=== PATIENT | male | born 1980 | race Two or more races ===

== ENCOUNTER 2018-02-08 19:55 | Emergency (ER) | payer OTHER ==
[~2018-02-08] VITALS: Ht 180.3 cm; Wt 97.5 kg
[2018-02-08 20:12] VITALS: Ht 180.3 cm; Wt 97.5 kg
[2018-02-08 20:59] LABS: BASOPHIL % 0.6 % (0-2); PLATELET COUNT 262 x10^3mcL (130-400)
[2018-02-08 21:04] LABS: RED CELL DISTRIBUTION WIDTH 15.7 % (11.5-14.5)
[2018-02-08 21:08] LABS: CARBON DIOXIDE 27.6 mmol/L (21-32); CHLORIDE SERUM 100 mmol/L (98-107); CREATININE SERUM 0.7 mg/dL (0.7-1.3); GFR1 > 60 mL/min; GLUCOSE SERUM 111 mg/dL (74-106); POTASSIUM SERUM 3.5 mmol/L (3.5-5.1); SODIUM SERUM 134 mmol/L (136-145)
[2018-02-08 21:13] LABS: ALBUMIN 3.4 g/dL (3.4-5.0); ALKALINE PHOSPHATASE 91 U/L (46-116); ALT/SGPT 40 U/L (16-63); AST/SGOT 27 U/L (15-37); BILIRUBIN TOTAL 0.4 mg/dL (0.20-1.00); LIPASE 99 IU/L (73-393)
[2018-02-08 21:14] LABS: TOTAL PROTEIN, SERUM 8.4 g/dL (6.4-8.2)
[2018-02-08 22:10] LABS: microscopic required? NO
[2018-02-08 22:25] LABS: UA SPECIFIC GRAVITY >=1.030 (1.005-1.035); urine erythrocyte NEGATIVE (NEGATIVE)
[2018-02-08 22:35] LABS: AMPHETAMINE QUAL UR POSITIVE (See below)
[2018-02-08 22:46] VITALS: BP 117/90
== END 2018-02-08 22:47 | disposition home or self-care (01) ==
LOC: ED 19:55
PROVIDERS: Emergency Medicine
DX: K59.00 Constipation, unspecified (principal); R11.10 Vomiting, unspecified; F15.10 Other stimulant abuse, uncomplicated; F11.10 Opioid abuse, uncomplicated
CPT/HCPCS: J1885; J2405

== ENCOUNTER 2019-04-18 19:52 | Emergency (ER) | payer OTHER ==
[~2019-04-18] VITALS: Ht 182.9 cm; Wt 105.2 kg
[2019-04-18 20:00] VITALS: BP 140/94; Ht 182.9 cm; Wt 105.2 kg
== END 2019-04-18 20:51 | disposition left against medical advice (07) ==
LOC: ED 19:52
DX: Z53.21 Procedure and treatment not carried out due to patient leaving prior to being seen by health care provider (principal)

== ENCOUNTER 2019-06-21 11:44 | Emergency (ER) | payer OTHER ==
[~2019-06-21] VITALS: Ht 182.9 cm; Wt 98.9 kg
[2019-06-21 11:49] VITALS: Ht 182.9 cm; Wt 98.9 kg
[2019-06-21 12:14] LABS: BASOPHIL % 0.7 % (0-2); PLATELET COUNT 246 x10^3mcL (130-400); RED CELL DISTRIBUTION WIDTH 13.7 % (11.5-14.5)
[2019-06-21 14:00] VITALS: BP 131/77
== END 2019-06-21 14:00 | disposition home or self-care (01) ==
LOC: ED 11:44
PROVIDERS: Emergency Medicine
DX: M54.5 Low back pain (principal); G89.29 Other chronic pain
CPT/HCPCS: 36415; J1885